=== PATIENT | female | born 1965 | race Caucasian/White ===

== ENCOUNTER 2019-11-02 12:59 | Emergency (ER) | payer OTHER ==
[~2019-11-02] VITALS: Ht 170.2 cm; Wt 59.0 kg
== END 2019-11-02 14:36 | disposition home or self-care (01) ==
LOC: ER 12:59 → EMR PED 13:26 → ER 14:36
DX: K64.8 Other hemorrhoids (principal); K62.5 Hemorrhage of anus and rectum

== ENCOUNTER 2019-12-10 07:13 | Emergency (ER) | payer OTHER ==
[~2019-12-10] VITALS: Ht 170.2 cm; Wt 54.4 kg
== END 2019-12-10 10:00 | disposition home or self-care (01) ==
LOC: ER 07:13
DX: E16.1 Other hypoglycemia (principal)

== ENCOUNTER → 2020-03-05 | Outpatient (CLI) | payer OTHER | END | disposition home or self-care (01) | LOC: PPH VACUNA 09:00 | DX: Z23 Encounter for immunization (principal) ==